=== PATIENT | male | born 1950 | race Caucasian/White ===

== ENCOUNTER → 2025-02-16 10:54 | Outpatient (REF) | payer OTHER, SELFPAY ==
[2025-02-16 11:51] LABS: Hematocrit 44.4 % (39.0-52.0); Hemoglobin 14.2 g/dL (13.0-18.0); Mean Corp Hgb Conc. 32.0 g/dL (33.0-37.0); Mean Corpuscular Volume 91.4 fL (80.0-94.0); Nucleated Red Blood Cells % 0 % (-); Platelet Count 271 10^3/uL (130-400); Red Cell Dist. Width 13.2 % (11.5-14.5)
[2025-02-16 13:47] LABS: Urine Character Clear (Clear)
[2025-02-16 13:47] LABS: Glycohemoglobin (HgbA1c) 5.8 % (4.0-5.6)
[2025-02-16 13:59] LABS: TSH 0.93 uIU/ml (0.47-4.68)
[2025-02-16 14:23] LABS: ALT (SGPT) 28 U/L (0-50); AST (SGOT) 26 U/L (17-59); Albumin 4.2 g/dl (3.5-5.0); Alkaline Phosphatase 115 U/L (38-126); Blood Urea Nitrogen 16 mg/dl (9-20); Calcium 9.6 mg/dl (8.4-10.2); Carbon Dioxide 30 mmol/L (22-30); Chloride 107 mmol/L (98-107); Glucose 103 mg/dl (70-99); HDL Cholesterol 39 mg/dl; LDL Cholesterol, Calculated 99 mg/dl; Potassium 5.9 mmol/L (3.5-5.1); Sodium 141 mmol/L (135-145); Total Protein 8.1 g/dl (6.3-8.2); Very Low Density Lipoprotein 16 mg/dl (0-30); eGFR > 60.00
[2025-02-16 15:46] LABS: Microalb - Urine Creatinine 66.900 mg/dl
[2025-02-16 16:16] LABS: Microalbumin, Random Urine 0.8 mg/dl (0.6-1.7)
== END ==
LOC: REG 10:54
PROVIDERS: ATTENDING PHYSICIAN Family Medicine
DX: Z00.00 Encounter for general adult medical examination without abnormal findings (principal)
CPT/HCPCS: 36415; 80053; 80061; 81003; 82043; 82570; 83036; 84153; 84154; 84443; 85025

== ENCOUNTER → 2025-02-23 13:31 | Outpatient (REF) | payer OTHER, SELFPAY ==
[2025-02-23 15:01] LABS: Potassium 4.4 mmol/L (3.5-5.1)
== END ==
LOC: REG 13:31
PROVIDERS: ATTENDING PHYSICIAN Family Medicine
DX: E87.5 Hyperkalemia (principal)
CPT/HCPCS: 36415; 84132